=== PATIENT | male | born 1990 | race African-American/Black ===

== ENCOUNTER 2022-01-16 19:19 | Emergency (ER) | payer OTHER, SELFPAY ==
[2022-01-16] MEDS ORDERED: cefTRIAXone\\ROCEPHIN 500 MG VIAL ONE (20:00)
[2022-01-16] MEDS ORDERED: Azithromycin 250 MG TAB ONE (20:01)
[2022-01-17 13:54] LABS: Chlam.trachomatis by PCR,Urine Not Detected (NotDetected)
== END 2022-01-16 20:15 | disposition home or self-care (01) ==
LOC: CSHERS 19:19
DX: Z20.2 Contact with and (suspected) exposure to infections with a predominantly sexual mode of transmission (principal)
CPT/HCPCS: 87491; 87591; 96372; 99283; J0696